=== PATIENT | male | born 1965 | race Caucasian/White ===

== ENCOUNTER 2024-09-15 20:14 | Inpatient (IN) ==
--- NOTE | 2024-09-15 20:10 | Pre Anesthesia Assessment ---
Date of Service September 15, 2024 Pre Sedation Assessment Vital Signs Pulse Pulse Resp BP BP Pulse Ox O2 Del Method 09/15/24 20:07 70 18 198/122 H 96 Room Air 09/15/24 20:07 Room Air 09/15/24 20:05 68 18 171/119 H 95 Room Air Cardiovascular + regular rate Respiratory + respiratory effort normal Pre-Sedation Airway Assessment Smoking Status: Never smoker Hx Sleep Apnea: No Hx Difficult Intubation: No Thyromental Distance: > or= 3.5 Finger Breadths Oral Cavity: + Dental Abnormalities Mallampati Class: III ASA: ASA3 Procedure Planning Contraindications for Sedation: none Current Medications Reviewed: Yes Notes The planned sedation has been discussed with the patient. Informed Consent was obtained. I have identified the patient, determined the appropriateness of sedation and have assessed the patient immediately prior to the procedure. All medicine(s) and interventions are by my order.
--- NOTE | 2024-09-15 20:13 | Cardiology Consultation ---
Date of Consultation September 15, 2024 Assessment & Plan (1) Acute NM: Presentation consistent with inferior STEMI and recommend proceeding with emergent cardiac catheterization and likely primary PCI. No apparent contraindications to procedure. Discussed risks, benefits, alternatives of procedure with patient and they are willing to proceed. Given IV heparin at outside hospital and ticagrelor 180 mg on arrival to [employer]. Further recommendations pending findings of coronary angiography. History of Present Illness History of Present Illness Mr. Knott is a 59-year-old man here with acute chest pain and ECG concerning for acute NM. He was transferred here emergently from [facility] after inferior ST elevations recognized on ECG. Patient has been having stuttering chest/back pain for 2 weeks. Pain previously lasted for 5 minutes before going away, had been taking muscle relaxers to try and help with pain. Today pain became more severe around 5 PM and persisted. Presented to [facility] around 6: 20. Treated with aspirin, heparin and nitroglycerin. Additional 50 of fentanyl in route. No prior cardiac history. Cardiac risk factors include hypertension and family history of premature CAD (mother had NM and CABG at age 48). Other medical issues include GERD, prior hernia repair. Back pain at time of arrival to [facility] 11/18. Hypertensive to 190s. EKG showed sinus rhythm with inferior ST elevations. Chest x-ray without obvious acute cardiopulmonary issue. Allergies Allergy/AdvReac Type Severity Reaction Status Date / Time bee venom protein (honey bee) Allergy Intermediate EXTRA Verified 09/15/24 20:25 SWELLING Home Medications Medication Instructions Recorded Confirmed Type Unknown Muscle Relaxant 1 dose PO DIRECTED PRN MUSCLE 09/15/24 09/15/24 History SPASMS Patient History Medical History (Updated 09/15/24 @ 21:36 by Sandra Matos PAGuerreroC) History of COVID-27 oct 2020, no hospitalized, resolved Hx of primary hypertension Surgical History (Updated 01/04/22 @ 06:18 by Juve Mayfield MD, FACS) H/O vasectomy H/O colonoscopy S/P left knee arthroscopy Family History Mother Diabetes Coronary heart disease Social History (Updated 11/02/21 @ 10:23 by Vivi Lawson, RN) Smoking Status: Never smoker Second Hand Exposure: No; Do You Dip or Chew Tobacco: No; Hx Alcohol Use: Yes Alcohol Intake Frequency: 2-3 x/Week Hx Substance Use: No Preferred Language: Yoruba Communication Ability: Effective Visual Impairment: No Limitations Hearing Ability: Normal Purler Required: No Beliefs That Will Affect Care: None marital status: Single Current Living Situation: Spouse current occupational status: employed current occupation: [email or web address] Feels Safe at Home: Yes during the past year weight has: remained stable Assistive Devices: Glasses Review of Systems Review of Systems: Not obtained the setting of emergent situation Physical Exam Physical Exam: General: Comfortable HEENT: Sclerae anicteric Lungs: Clear to auscultation anteriorly Cardiac: Regular rate and rhythm, no murmurs. Vascular: 2+ radial pulses, 2+ UNIT CLERK, 2+ DP pulses bilaterally Abdomen: Soft, nontender Extremities: Well perfused, no peripheral edema Neuro: Nonfocal Psych: Alert orient x3, normal affect and mood PG Care Time/CCT Total # of Minutes Spent Total Time Spent with Patient: Total time spent is greater than 50% in coordination of care (as documented) at patient's floor/unit and/or counseling patient: Coding Level of Care Code 26683 OFFICE CONSULT LVL Diagnoses Acute NM I21.9
[2024-09-15] MEDS: TICAGRELOR 90 MG TAB ONE (20:38)
[2024-09-15 20:39] LABS: iSTAT Creatinine 1.2 mg/dl (0.6-1.3); iSTAT Hemoglobin 14.3 g/dl (14.0-18.0); iSTAT Ionized Calcium 1.11 mmol/l (1.12-1.32); iSTAT Potassium 3.8 mmol/L (3.3-5.0)
[2024-09-15 20:39] LABS: Basophils # (auto) 0.04 K/uL (0.00-0.20); Basophils % (auto) 0.5 %; Eosinophils # (auto) 0.12 K/uL (0.00-0.50); Eosinophils % (auto) 1.5 %; Hematocrit (blood only) 42.1 % (42.0-52.0); Hemoglobin 15.8 g/dl (14.0-18.0); Immature Granulocytes # (auto) 0.02 K/uL (0.01-0.20); Immature Granulocytes % (auto) 0.2 %; Lymphocytes # (auto) 1.87 K/uL (1.20-3.40); Lymphocytes % (auto) 22.8 %; Mean Corpuscular Hemoglobin 33.3 pg (25.0-34.0); Mean Corpuscular Hgb Conc 37.5 g/dL (32.0-36.0); Mean Corpuscular Volume 88.8 fL (80.0-100.0); Mean Platelet Volume 9.1 fL (9.4-12.4); Monocytes # (auto) 0.75 K/uL (0.11-0.59); Monocytes % (auto) 9.2 %; Neutrophils # (auto) 5.39 K/uL (1.40-6.50); Neutrophils % (auto) 65.8 %; Platelet Count 249 K/uL (130-400); RDW Coefficient of Variation 12.1 % (11.5-14.5); Red Blood Count 4.74 M/uL (4.70-6.10); White Blood Count 8.19 K/ul (4.8-10.8)
--- NOTE | 2024-09-15 20:39 | Emergency Department Note ---
Impression & Plan Acute SD, Hypertension ED Provider Note NAME: ALBERTO GRANADOS AGE: 59 SEX: Male INFORMANT: Patient ED PROVIDER(S): Nestor Núñez MD CHIEF COMPLAINT: Acute SD PLAN: Disposition: Admitted emergently to the catheterization suite Outpatient prescription management: none Referral: None MEDICAL DECISION MAKING: Patient was accepted in transfer from [facility]. I did discuss the patient's case and history with his treating physician there, Dr. Lay. Did discuss the patient's situation with the [facility]. Coordinated acceptance to the Emergency Department. Initiated heart alert based upon estimated time of arrival. Did review patient's outside ECG and this was concerning for inferior SD. Catheterization team and Dr. Saenz presented to the emergency department prior to patient arrival. Did discuss patient's situation with the interventional team. Patient arrived and was evaluated by myself as well as Dr. Saenz. Internal medicine, Dr. Kim was also consulted and did evaluate the patient as well. Patient had repeat ECG here. Inferior ST elevation was noted. Patient had already received heparin and nitroglycerin along with fentanyl prehospital. He did note resolution of his chest pain. He did have some back discomfort. Chest x-ray did not reveal any evidence of wide mediastinum. No further medication intervention was recommended by cardiology. Patient was taken emergently to the catheterization suite for cardiac intervention. I refer you to the EMR for further details. Care/management discussed with: Transfer physician at [facility], Dr. Lay, radio communication coordinator at [facility], interventional cardiology, customer development manager, hospitalist Level of care consideration(s): After review of the information above and other included data, I feel the patient requires escalation of care to admission Triage Nursing notes: reviewed and agree them. Vital Signs: reviewed and remarkable for hypertension Additional History obtained from: none Chronic Medical/Social Conditions affecting care: Hypertension Prior/ Outside/ External records reviewed: none Differential Diagnosis: Cardiac ischemia, aortic dissection, pulmonary embolism, pneumothorax, pneumonia, pericarditis, myocarditis, esophageal rupture, GERD, cholecystitis, pancreatitis, musculoskeletal, as well as other pathologies. Diagnostics, independently interpreted by me: ECG: Twelve-lead ECG reveals a sinus bradycardia rhythm with inferior ST elevation at 53 beats per minute. Cardiac Monitoring: Cardiac monitoring ordered by me: The patient was placed on continuous cardiac monitoring and observed. It revealed a normal sinus rhythm at 72 beats per minute without ectopy or evidence of dysrhythmia. Medical decision rules: none Imaging studies: Chest x-ray. Findings: A chest x-ray was performed and revealed no pneumothorax, effusion, infiltrate, pulmonary edema, free air under the diaphragm, or wide mediastinum. Impression: No acute disease. HPI: 59 year old Male arrives for evaluation of acute SD. Patient notes having on and off chest pain and back pain for the last 2 weeks. He states that usually was going away within about 5 minutes. Today around 1700 hrs. the pain came and did not go away. He went to the [facility] and ECG there was concerning for acute SD. Patient was treated with aspirin, nitroglycerin and heparin. He also received fentanyl. Patient was seen by Dr. Lay there. He discussed findings with the patient and family and patient requested transfer to [facility]. Dr. Lay did contact me and we discussed the case. Patient was accepted to the emergency department for management of acute ST elevation SD. Patient was made a heart alert prehospital. On arrival patient notes chest pain has resolved. He does have some discomfort in his back. Pain was rated as 6 out of 10. Pt denies LOC, headache, fevers, chills, neck pain, breathing difficulties, nausea, vomiting, abdominal pain, numbness, weakness, lymphadenopathy, rash, or other complaints. PAST MEDICAL HISTORY: See Below, hypertension PAST SURGICAL HISTORY: See Below, hernia repair SOCIAL HISTORY: See Below, HOME MEDICATIONS: See Below ALLERGIES: See Below VITALS: See Below PHYSICAL EXAMINATION: GENERAL: Awake, alert, well-appearing, in no distress HENT: Normocephalic, atraumatic. Oropharynx unremarkable. EYES: Normal conjunctiva. Sclera non-icteric. NECK: Inspection normal. Non-tender. Supple. No nuchal rigidity. FROM. No masses. RESPIRATORY: Clear to auscultation. No wheezes. No rales. Normal respiratory effort. CARDIAC: Bradycardic rate. Normal rhythm. No murmurs. No rubs. Extremities warm and well perfused. Pulses equal. No JVD. GI: Soft, non-distended. No tenderness to palpation. No rebound or guarding. No masses. RECTAL: Deferred. MUSCULOSKELETAL: Atraumatic. Chest examination reveals no tenderness. No joint edema. LOWER EXTREMITIES: Calves are equal size bilaterally and non-tender. No edema. No discoloration. NEURO: Normal sensorium. No sensory or motor deficits noted. SKIN: No rash or jaundice noted. PROCEDURES: none CRITICAL CARE: I have personally spent 30 minutes of critical care time in the direct management of this patient. This includes bedside care, interpretation of diagnostic studies, and testing, discussion with consultants, patient, and coordination of transfer, documentation, and other required patient management activities. These minutes are in excess of all separately billable procedures. OBSERVATION NOTE: none Past Med/Surg History Problem List (Updated 09/15/24 @ 21:36 by Sandra Matos PA-C) CAD (coronary artery disease) ST elevation myocardial infarction (STEMI) of inferior wall Acute SD S/P left inguinal hernia repair (11/22/21) Left Inguinal Hernia Open Repair(Left) - Juve Mayfield MD, FACS Encounter for pre-operative examination Epigastric abdominal pain Substernal chest pain GERD (gastroesophageal reflux disease) Hypertension Left inguinal hernia Medical History (Updated 09/15/24 @ 21:36 by Sandra Matos PA-C) History of COVID-27 oct 2020, no hospitalized, resolved Hx of primary hypertension Surgical History (Updated 01/04/22 @ 06:18 by Juve Mayfield MD, FACS) H/O vasectomy H/O colonoscopy S/P left knee arthroscopy Family History Mother Diabetes Coronary heart disease Social History (Updated 11/02/21 @ 10:23 by Vivi Lawson RN) Smoking Status: Never smoker Second Hand Exposure: No; Do You Dip or Chew Tobacco: No; Hx Alcohol Use: Yes Alcohol type: hard liquor Alcohol Intake Frequency: 2-3 x/Week Hx Substance Use: No Preferred Language: Slovak Communication Ability: Effective Visual Impairment: No Limitations Hearing Ability: Normal Examining Officer Required: No Beliefs That Will Affect Care: None marital status: Single Current Living Situation: Spouse current occupational status: employed current occupation: [employer] Feels Safe at Home: Yes Safety Concerns: Feels Safe At This Time during the past year weight has: remained stable Assistive Devices: Glasses Allergies Allergies Allergy/AdvReac Type Severity Reaction Status Date / Time bee venom protein (honey bee) Allergy Intermediate EXTRA Verified 09/15/24 20:25 SWELLING Home Meds Home Medications Medication Instructions Recorded Confirmed Unknown Muscle Relaxant 1 dose PO DIRECTED PRN MUSCLE 09/15/24 09/15/24 SPASMS Results & Data (ED) Vital Signs Vital Signs - 24 hr 09/15/24 20:05 09/15/24 20:07 09/15/24 20:07 Pulse Rate 68 Pulse Rate [Apical] 70 Respiratory Rate 18 18 Respiratory Effort / Characteristics Non-Labored Non-Labored Respiratory Depth Normal Normal Blood Pressure 171/119 H Blood Pressure [Right Arm] 198/122 H Blood Pressure Mean 136 Blood Pressure Mean [Right Arm] 147 Pulse Oximetry 95 96 Oxygen Delivery Method Room Air Room Air Room Air Sepsis Recent Fever Within 48 Hours No Sepsis New/Unexplained Change in Mental Status No Sepsis Action Taken by Nursing No Action Required Laboratory Data 09/15/24 20:09/15/24 20:25 Lab Results 09/15/24 Range/Units 20:25 WBC 8.19 (4.8-10.8) K/ul RBC 4.74 (4.70-6.10) M/uL Hgb 15.8 (14.0-18.0) g/dl Hct 42.1 (42.0-52.0) % MCV 88.8 (80.0-100.0) fL MCH 33.3 (25.0-34.0) pg MCHC 37.5 H (32.0-36.0) g/dL RDW Std Deviation 39.0 (36.4-46.3) fL RDW Coeff of Nicanor 12.1 (11.5-14.5) % Plt Count 249 (130-400) K/uL MPV 9.1 L (9.4-12.4) fL Immature Gran % (Auto) 0.2 % Neut % (Auto) 65.8 % Lymph % (Auto) 22.8 % Ware % (Auto) 9.2 % Eos % (Auto) 1.5 % Baso % (Auto) 0.5 % Neut # (Auto) 5.39 (1.40-6.50) K/uL Lymph # (Auto) 1.87 (1.20-3.40) K/uL Ware # (Auto) 0.75 H (0.11-0.59) K/uL Eos # (Auto) 0.12 (0.00-0.50) K/uL Baso # (Auto) 0.04 (0.00-0.20) K/uL Immature Gran # (Auto) 0.02 (0.01-0.20) K/uL PT 11.0 (9.0-12.0) Seconds INR 1.0 (0.9-1.1) APTT 43 H (21-31) Seconds PTT Ratio 1.6 Sodium 137 (136-145) mmol/L Potassium 3.8 (3.5-5.1) mmol/L Chloride 105 (98-107) mmol/L Carbon Dioxide 25 (21-32) mmol/L Anion Gap 7 (3-11) BUN 18 (6-23) mg/dl Creatinine 1.12 (0.6-1.4) mg/dl Est Cr Clr Drug Dosing 91.1 ml/min eGFR 76.15 BUN/Creatinine Ratio 16.1 (10-20) Glucose 93 (70-99(Fasting)) mg/dl Calcium 9.1 (8.6-10.3) mg/dl Magnesium 1.9 (1.7-2.4) mg/dl Total Bilirubin 1.8 H (0.2-1.0) mg/dl AST 32 (13-39) U/L ALT 37 (7-52) U/L Alkaline Phosphatase 63 (34-104) U/L Troponin I High Sens 241.6 H* (0-20) pg/ml Total Protein 7.0 (6.0-8.3) gm/dl Albumin 4.5 (3.4-5.0) gm/dl Globulin 2.5 (2.5-4.0) gm/dl Albumin/Globulin Ratio 1.8 (0.9-2) Lipase 110 H (11-82) U/L Administered Medications Metoprolol Tartrate (Metoprolol Tartrate 25 Mg Tab) 12.5 mg PO BID CARTER Stop: 10/15/24 21:59 Last Admin: 09/15/24 22:25 Dose: 12.5 mg Documented By: FAN Miscellaneous (Icu Protocol For Hyperglycemia) 1 each N/A ACHS CARTER Stop: 09/17/24 21:53 Last Admin: 09/15/24 22:25 Dose: Not Given Documented By: FAN Discontinued Medications Atropine Sulfate (Atropine Sulfate 0.1 Mg/Ml 10ml Syr) Confirm Administered Dose 1 mg IV .STK-MED ONE Stop: 09/15/24 20:25 Last Admin: 09/15/24 21:27 Dose: 1 mg Documented By: AAF Atropine Sulfate (Atropine Sulfate 0.1 Mg/Ml 10ml Syr) Confirm Administered Dose 1 mg IV .STK-MED ONE Stop: 09/15/24 20:51 Last Admin: 09/15/24 21:28 Dose: Not Given Documented By: AAF Epinephrine HCl (Epinephrine 1.5" Ndl 0.1 Mg/Ml Syr) Confirm Administered Dose 1 mg IV .STK-MED ONE Stop: 09/15/24 20:25 Last Admin: 09/15/24 21:27 Dose: Not Given Documented By: AAF Fentanyl Citrate (Fentanyl Citrate Pf 100 Mcg/2 Ml Vial) Confirm Administered Dose 100 mcg .ROUTE .STK-MED ONE Stop: 09/15/24 20:15 Last Increment: 09/15/24 21:19 Dose: 75 mcg Documented By: AAF Heparin Sodium (Porcine) (Heparin (Porcine) 1000 Unit/Ml 10 Ml (Computer Technical Support Specialist Use Only)) Confirm Administered Dose 10,000 units .ROUTE .STK-MED ONE Stop: 09/15/24 20:15 Last Admin: 09/15/24 21:24 Dose: 8,000 units Documented By: AAF Heparin Sodium/Sodium Chloride (Heparin In Nss Infusion 1000 Unit/500 Ml (2 U/Ml) Bag) Confirm Administered Dose 3,000 units IV .STK-MED ONE Stop: 09/15/24 20:15 Last Admin: 09/15/24 21:25 Dose: 3,000 units Documented By: AAF Ioversol (Optiray 350) Confirm Administered Dose 1 ml .ROUTE .STK-MED ONE Stop: 09/15/24 20:15 Last Admin: 09/15/24 21:26 Dose: 75 ml Documented By: AAF Midazolam HCl (Midazolam Hcl 1 Mg/Ml 2ml Vial) Confirm Administered Dose 2 mg .ROUTE .STK-MED ONE Stop: 09/15/24 20:15 Last Admin: 09/15/24 21:26 Dose: 2 mg Documented By: AAF Nitroglycerin/Dextrose (Nitroglycerin/D5w 100mcg/Ml 20ml Syr) Confirm Administered Dose 2,000 mcg .ROUTE .STK-MED ONE Stop: 09/15/24 20:15 Last Admin: 09/15/24 21:27 Dose: 2,000 mcg Documented By: BE Ondansetron HCl (Ondansetron Inj 2 Mg/Ml 2 Ml Vial) Confirm Administered Dose 4 mg .ROUTE .STK-MED ONE Stop: 09/15/24 20:25 Last Admin: 09/15/24 21:27 Dose: 4 mg Documented By: DEYSI Ticagrelor (Ticagrelor 90 Mg Tab) Confirm Administered Dose 180 mg .ROUTE .STK- MED ONE Stop: 09/15/24 20:29 Last Admin: 09/15/24 20:38 Dose: 180 mg Documented By: DEYSI Imaging Data Radiologist's Impression: Chest X-Ray 09/15/24 20:25 Exam(s): XR CXR 1 VIEW EXAM: XR Chest, 1 View CLINICAL HISTORY: Reason for exam: Chest pain, nonspecific. TECHNIQUE: Frontal view of the chest. COMPARISON: No relevant prior studies available. FINDINGS: Lungs: No consolidation. No overt edema. Pleural space: No pleural effusion. No pneumothorax. Heart: Unremarkable. No cardiomegaly. IMPRESSION: No acute cardiopulmonary abnormality. Electronically signed by: Mt Madsen MD 09/15/24 22:01 PM Discharge Plan Visit Data Chief Complaint: Heart Alert Stated Complaint: HEART ALERT ED Provider: Nestor Núñez Discharge Problem: Acute SD, Hypertension Patient Disposition: Admitted As Inpatient Discharge Instructions Interventions: ED Discharge Assessment Last Done: 09/15/24 20:27
--- NOTE | 2024-09-15 20:53 | History & Physical Report ---
Date of Service September 15, 2024 Assessment & Plan (1) ST elevation myocardial infarction (STEMI) of inferior wall: (2) Hx of primary hypertension: (3) GERD (gastroesophageal reflux disease): Plan 59 year old male presents as a transfer from [facility] with chest pain and inferior STEMI #Inferior STEMI s/p PCI with x1 DELILAH to 100% occluded RCA ASA, Brilinta, metoprolol, losartan, statin Lipid panel and HbA1C with AM labs TTE Consult cardiology - discussed with Dr Saenz pre and post cardiac cath Admit to ICU and consult operations officer afloat - discussed with ICU CHAMP Flores Note previously had GERD secondary to losartan therefore may need pantoprazole longer term not just as inpatient #History of HTN Previously intolerant to lisinopril due to cough, GERD with losartan Monitor for recurrence of symptoms on losartan VTE Prophylaxis - deferred with DAPT Diet - heart healthy Disposition - admit to ICU Admission and Anticipated Discharge Date Admission Date: September 15, 2024 History of Present Illness Chief Complaint: Chest pain Primary Care Provider: Chapo Emerita Knott is a 59 year old male who presents to [facility] emergency room with chest pain. Intermittent for the last 2 weeks resolving over 5 minutes. Constant severe pain since 5pm today. Seen at [facility] and EKG concerning for inferior STEMI therefore emergently transferred to [facility] for percutaneous intervention and he arrived as a heart alert. Patient was seen both pre and post cardiac catheterization. He is currently chest pain free following cardiac catheterization in the ICU. Allergies Allergy/AdvReac Type Severity Reaction Status Date / Time bee venom protein (honey bee) Allergy Intermediate EXTRA Verified 09/15/24 20:25 SWELLING Home Medications Medication Instructions Recorded Confirmed Type Unknown Muscle Relaxant 1 dose PO DIRECTED PRN MUSCLE 09/15/24 09/15/24 History SPASMS Past Med/Surg History Problem List (Updated 09/16/24 @ 07:02 by Jorge Kim MD) CAD (coronary artery disease) ST elevation myocardial infarction (STEMI) of inferior wall Acute [place] S/P left inguinal hernia repair (11/22/21) Left Inguinal Hernia Open Repair(Left) - Juve Mayfield MD, FACS Epigastric abdominal pain Substernal chest pain GERD (gastroesophageal reflux disease) Hypertension Left inguinal hernia Medical History (Updated 09/16/24 @ 07:02 by Jorge Kim MD) History of COVID-27 oct 2020, no hospitalized, resolved Hx of primary hypertension Surgical History (Updated 01/04/22 @ 06:18 by Juve Mayfield MD, FACS) H/O vasectomy H/O colonoscopy S/P left knee arthroscopy Family History Mother Diabetes Coronary heart disease Social History (Updated 11/02/21 @ 10:23 by Vivi Lawson, RN) Smoking Status: Never smoker Second Hand Exposure: No; Do You Dip or Chew Tobacco: No; Hx Alcohol Use: Yes Alcohol type: hard liquor Alcohol Intake Frequency: 2-3 x/Week Hx Substance Use: No Preferred Language: Citizen Of [place] Communication Ability: Effective Visual Impairment: No Limitations Hearing Ability: Normal Order Entry Specialist Required: No Beliefs That Will Affect Care: None marital status: Single Current Living Situation: Spouse current occupational status: employed current occupation: [employer] Feels Safe at Home: Yes Safety Concerns: Feels Safe At This Time during the past year weight has: remained stable Assistive Devices: Glasses Review of Systems Review of Systems: All systems reviewed & are unremarkable except as noted in HPI & below Physical Exam Constitutional: WD/WN, vitals as above ENMT: external ear and nose normal, oropharynx normal Respiratory: normal respiratory effort, lungs clear to auscultation Cardiovascular: RRR, no murmur, no edema Gastrointestinal (Abdomen): normal bowel sounds, soft, nontender, no hepatosplenomegaly Psychiatric: A+Ox3, euthymic affect Results & Data Results & Data Vital Signs (Past 12 Hours) Vital Signs Pulse Pulse Resp BP BP Pulse Ox O2 Del Method 09/15/24 20:27 Room Air 09/15/24 20:07 70 18 198/122 H 96 Room Air 09/15/24 20:07 Room Air 09/15/24 20:05 68 18 171/119 H 95 Room Air Laboratory Results All admission labs reviewed, Magnesium added Diagnostic Findings Exam(s): XR CXR 1 VIEW EXAM: XR Chest, 1 View CLINICAL HISTORY: Reason for exam: Chest pain, nonspecific. TECHNIQUE: Frontal view of the chest. COMPARISON: No relevant prior studies available. FINDINGS: Lungs: No consolidation. No overt edema. Pleural space: No pleural effusion. No pneumothorax. Heart: Unremarkable. No cardiomegaly. IMPRESSION: No acute cardiopulmonary abnormality. ECG Rate (beats per minute): 53 Rhythm: sinus bradycardia Findings: + ST elevation (Inferior) Comparison ECG Date: from (November 17, 2021) Change: the following changes noted (ST elevation in inferior leads now present) Code Status & VTE Plan Code Status Full VTE Prophylaxis Plan VTE Prophylaxis will be ordered: No PG Care Time/CCT Total # of Minutes Spent Total Time Spent with Patient: Total time spent is greater than 50% in coordination of care (as documented) at patient's floor/unit and/or counseling patient: Coding Level of Care Code 23224 INT INP/OBS CARE 3/75MIN Diagnoses ST elevation myocardial infarction (STEMI) of inferior wall I21.19 Hx of primary hypertension Z86.79 GERD (gastroesophageal reflux disease) K21.9
[2024-09-15 20:55] LABS: Albumin Globulin Ratio 1.8 (0.9-2); Albumin Level 4.5 gm/dl (3.4-5.0); BUN Creatinine Ratio 16.1 (10-20); Bilirubin,Total 1.8 mg/dl (0.2-1.0); Calcium 9.1 mg/dl (8.6-10.3); Creatinine Clr Calc Pharmacy 91.1 ml/min; Globulin 2.5 gm/dl (2.5-4.0); Potassium 3.8 mmol/L (3.5-5.1)
[2024-09-15 21:04] LABS: Partial Thromboplastin Ratio 1.6; Partial Thromboplastin Time 43 Seconds (21-31)
[2024-09-15 21:07] LABS: Troponin I High Sensitivity 241.6 pg/ml (0-20)
[2024-09-15] MEDS: fentaNYL citrate PF 100 MCG/2 ML VIAL ONE (21:19)
--- NOTE | 2024-09-15 21:22 | Critical Care Consultation ---
Date of Consultation September 15, 2024 Assessment & Plan (1) ST elevation myocardial infarction (STEMI) of inferior wall: (2) CAD (coronary artery disease): (3) Hypertension: Plan Reason Critically Ill: 1. Inferior wall STEMI s/p DELILAH to RCA Neuro - Multimodal pain management APAP PRN pain/fever Cardiac - DAPT as ordered Lipids, A1c pending TTE Post-cath EKG pending Cardiology consultation MAP goal > 65mmHg Start BB, ARB as hemodynamics allow Respiratory - SpO2 goal > 92% HOB 30 IS/Flutter GI - Diet: Heart health, advance DIANNE SUP: PPI Bowel regimen: PRN, up and moving as soon as able RENAL/LYTES - Renal function stable Replete electrolytes as indicated No indication for dupont Maintain net even to net negative. Encourage PO intake ENDO - A1c pending BG 140-180 per SCCM guidelines ISS if needed while inpatient HEME - DAPT ID - No acute concerns LINES/TUBES/DRAINS - PIV x2 DISPOSITION - ICU x24 hours per protocol I have personally spent 30 minutes of critical care time in the direct management of this patient. This is a life/limb threatening event. This includes time spent evaluating patient, direct bedside care, chart review, placing orders, interpretation of diagnostic studies, discussion with consultants, patient, and family members, as well as other required patient management activities. This time is exclusive of all separately billable procedures, and teaching time and separate from and in addition to any other critical care service time. Thank you for allowing us to participate in the care of this patient. Please refer to my attending physician's documentation for any further recommendations. Supervising Physician Co-Signing Physician Notes Patient seen and examined. EMR reviewed. Agree with assessment plan as noted by JENNIFER. Please refer to my progress note from for additional details History of Present Illness Reason for Consultation: STEMI Requesting Physician: Dany Attending Physician: Judy History of Present Illness Mr. Vishal Knott is a 59YOM with a history of hypertension and GERD as well as a strong family history of heart disease who presented to [facility] ED as a transfer from [facility] due to inferior STEMI. Patient hypertensive, otherwise hemodynamically stable on arrival to [facility]. Per report, patient experiencing transient chest pain with radiation to his jaw and back x2 weeks, worsening on 09/15/2024. He received aspirin load, nitroglycerin SL x2, heparin load, and heparin infusion at OSH. Transferred to [facility] for cardiac catheterization. Initial troponin 288. Bilirubin 1.8, lipase 110, labs otherwise unremarkable. He underwent successful DELILAH to 100% blockage of RCA. Remainder of disease is mild to moderate. LVEDP was WNL. Patient seen on arrival to ICU 110. He is AAOx3. Remains hypertensive 168 systolic. No current complaints, some muscle pain of the chest /10. No shortness of breath, headache, visual deficits. Remainder of ROS negative. Does admit to medical noncompliance with his Losartan. Allergies Allergy/AdvReac Type Severity Reaction Status Date / Time bee venom protein (honey bee) Allergy Intermediate EXTRA Verified 09/15/24 20:25 SWELLING Home Medications Medication Instructions Recorded Confirmed Type Unknown Muscle Relaxant 1 dose PO DIRECTED PRN MUSCLE 09/15/24 09/15/24 History SPASMS Patient History Medical History (Updated 09/16/24 @ 07:02 by Jorge Kim MD) History of COVID-27 oct 2020, no hospitalized, resolved Hx of primary hypertension Surgical History (Updated 01/04/22 @ 06:18 by Juve Mayfield MD, FACS) H/O vasectomy H/O colonoscopy S/P left knee arthroscopy Family History Mother Diabetes Coronary heart disease Social History (Updated 11/02/21 @ 10:23 by Vivi Lawson RN) Smoking Status: Never smoker Second Hand Exposure: No; Do You Dip or Chew Tobacco: No; Hx Alcohol Use: Yes Alcohol type: hard liquor Alcohol Intake Frequency: 2-3 x/Week Hx Substance Use: No Preferred Language: Afghan Communication Ability: Effective Visual Impairment: No Limitations Hearing Ability: Normal 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 Beliefs That Will Affect Care: None marital status: Single Current Living Situation: Spouse current occupational status: employed current occupation: [employer] Feels Safe at Home: Yes Safety Concerns: Feels Safe At This Time during the past year weight has: remained stable Assistive Devices: Glasses Review of Systems Review of Systems: All systems reviewed & are unremarkable except as noted in Subjective Physical Exam Constitutional: WD/WN, vitals as above Eyes: PERRL, conjunctivae normal, anicteric sclerae ENMT: external ear and nose normal, oropharynx normal Neck: trachea midline, no thyromegaly Respiratory: normal respiratory effort, lungs clear to auscultation Cardiovascular: RRR, no murmur, no edema Gastrointestinal (Abdomen): normal bowel sounds, soft, nontender, no hepatosplenomegaly Musculoskeletal: no cyanosis or clubbing, extremities motor strength 5/5 Skin: no rashes, warm and dry Neurologic: PERRL, EOMI, accommodation nl, no face palsy, no dysarthria Genitourinary: Deferred Results & Data Results & Data Vital Signs (Past 12 Hours) Vital Signs Pulse Pulse Resp BP BP Pulse Ox O2 Del Method 09/15/24 20:27 Room Air 09/15/24 20:07 70 18 198/122 H 96 Room Air 09/15/24 20:07 Room Air 09/15/24 20:05 68 18 171/119 H 95 Room Air Laboratory Results Reviewed Diagnostic Findings Reviewed Medications Administered See MAR Coding Level of Care Code 95830 CRITICAL CARE 1ST 30-74M Diagnoses ST elevation myocardial infarction (STEMI) of inferior wall I21.19 CAD (coronary artery disease) I25.10 Hypertension I10 Time Spent (min) 30
[2024-09-15] MEDS: HEPARIN (PORCINE) 1000 UNIT/ML 10 ML (CATH LAB USE ONLY) ONE (21:24)
--- NOTE | 2024-09-15 21:24 | Post Anesthesia Assessment ---
Date of Service September 15, 2024 Post Sedation Assessment Vital Signs Pulse Pulse Resp BP BP Pulse Ox O2 Del Method 09/15/24 20:27 Room Air 09/15/24 20:07 70 18 198/122 H 96 Room Air 09/15/24 20:07 Room Air 09/15/24 20:05 68 18 171/119 H 95 Room Air Recovery Score Activity: Moves 4 extremities Respiration: Deep Breath/Cough Circulation: +/-20% PreAnes Value Consciousness: Fully Awake Oxygen Saturation: O2 needed for >90% Discharge Sedation Level of Care: Fast Track Phase II Post Sedation Plan On clinical assessment, the patient appears to have tolerated the sedation without complications. Patient is recovering as anticipated. Patient will continue to be monitored by nursing and may be discharged when sedation discharge criteria are met per below protocol. Upon Completions of procedure up to 15 minutes continue every 5 minute vital signs and the P.A.R. score; then discharge to a Phase I or Fast Track to Phase II per the following guidelines: * Discharge Patient to appropriate Phase II area if PAR is 8 or greater or return to pre- procedure baseline. The post - procedure orders will be as directed. * If PAR score is less than 8 or not return to pre-procedure baseline then patient will follow Phase I monitoring till PAR is reached for Phase II. The Phase I may be done in procedure room or may call to secure a Phase I area. * If naloxone or flumazenil are used for reversal, hold in Phase I for continued monitoring from when last reversal dose was given for a minimum of 60 minutes or longer pending the nurse and/or physician discretion of patient condition before discharge to Phase II. Please call the Sedation Physician to re-evaluate and complete post-note for discharge to Phase II area. Do NOT discharge from procedure sedation or Phase 1 until post- sedation evaluation note is complete by procedure /sedation MD Sedation Discharge Instructions to be given to the patient at discharge to home.
[2024-09-15] MEDS: OPTIRAY 350 ONE (21:26)
[2024-09-15] MEDS: MIDAZOLAM HCL 1 MG/ML 2ML VIAL ONE (21:26)
[2024-09-15] MEDS: ATROPINE SULFATE 0.1 MG/ML 10ML SYR IV ONE ×2 (21:27→21:28)
[2024-09-15] MEDS ORDERED: ONDANSETRON INJ 2 MG/ML 2 ML VIAL IV PRN (21:27)
[2024-09-15] MEDS: NITROGLYCERIN/D5W 100MCG/ML 20ML SYR ONE (21:27)
[2024-09-15] MEDS: ONDANSETRON INJ 2 MG/ML 2 ML VIAL ONE (21:27)
--- NOTE | 2024-09-15 21:27 | Cardiac Catheterization ---
[facility] Data: Vending Route Servicer Cardiac Status Clinical evaluation leading to the procedure CAD Presenation: STEMI Anginal Classification: CCS IV Diagnostic Physicians Name: Melvin Saenz MD Closure Device Recommendations: PCI without planned CABG Cardiac Cath Procedure Full Procedure Date September 15, 2024 Pre-Procedure Diagnosis Pre-Procedure Diagnosis: STEMI AUC Score AUC Score: 9 Post-Procedure Diagnosis Post-Procedure Diagnosis: Severe CAD, Successful PCI and Normal Intracardiac Pressures Procedure(s) Performed Procedure(s) Performed: Coronary Angiography, Left Heart Cath and Drug Eluting Stent Recruiting Internship Melvin Saenz MD Salesperson Stereo Equipment(s) Nellie Smith Estimated Blood Loss Estimated Blood Loss: 20 Medication(s) Medication(s): Clopidogrel, Fentanyl, Heparin, Lidocaine 1%, Nicardipine, Nitroglycerin and Versed Summary of Findings Indication: STEMI/Heart Alert Access: 6 Fr slender right radial artery Catheters: [place], JR4 guide, pigtail Findings: LM -Short, no significant disease LAD -large caliber, calcified, 30-40% proximal disease, 30-40% distal disease before wraps around apex. Gives off 4 diagonals. 50% ostial D2 Circumflex -medium caliber, 20 to 30% ostial, remainder of AV groove circumflex without significant disease. Medium OM1 with 20 to 30% proximal disease. RCA -dominant, 100% earlymid RCA occlusion. Distal vessel partially fills retrograde via [id number] collaterals. LVEDP -7 -- PCI -- Antithrombotic therapy: Heparin, ticagrelor Procedure: RCA cannulated with JR4 guide Onyx Chip Terrazzo Worker 50 wire passed across lesion into distal vessel Proximal to mid lesion predilated with 2.5 compliant balloon Dilated lesion stented with 3.0 x 30 mm Nahum drug-eluting stent Stent post-dilated with 3.5 noncompliant balloon IC vasodilators administered for spasm Post procedure YOUNG 3 flow, stent well expanded with minimal residual stenosis and no apparent cardiac complications. Arterial Closure: TR band Summary: 1. Inferior STEMI/100% earlymid RCA occlusion with partial [id number] collaterals 2. Mild non-culprit coronary artery disease -30-40% proximal and distal LAD 20-30% ostial circumflex, 20 to 30% proximal OM1 3. Normal intracardiac filling pressure 4. Successful PCI of proximal to mid RCA with single drug-eluting stent (3.0 x 30 mm Nahum; postdilated with 3.5 NC). Recommendations: Admit to ICU for continued monitoring Loaded with ticagrelor 180 mg and Continue dual-antiplatelet therapy for at least 1 year. Trend troponins until peak, Check Echo Uptitrate beta-tessa/ARB as BP allows High-dose statin Consult cardiac Rehab Hemodynamics Rest Ao:: 149/80/119 Final Ao: 120/78/96 LV: 117/7 Recommendations Recommendations: PCI without planned CABG Radiation Exposure (mGy) 2014 Contrast (mls) 75 Anesthesia Moderate 6182-0934 Procedural Complication(s) None Disposition ICU I attest to the content of the Intraoperative Record and any orders documented therein. Any exceptions are noted below. [facility] Card Cath Procedure Codes Cardiac Catheterization Procedure 1: Cardiovascular Cath Procedures: 67824 Coronaries and LHC (+/-LV) Moderate Sedation Procedure 1: Sedation/Anesthesia: 16559 Mod Sedation by the same physician;Init15 Min Child Age 5 & Up Procedure 2: Sedation/Anesthesia: 17959 Mod Sedation by the same physician; Ea [id number] Minutes Stenting Procedure 1: Cardiovascular Stent Procedures: 05514 Perc transluminal revascularization of acute sub/total occl, aMI PG Care Time/CCT Total # of Minutes Spent Total Time Spent with Patient: Total time spent is greater than 50% in coordination of care (as documented) at patient's floor/unit and/or counseling patient:
--- NOTE | 2024-09-15 22:02 | XRay Report ---
Exam(s): XR CXR 1 VIEW EXAM: XR Chest, 1 View CLINICAL HISTORY: Reason for exam: Chest pain, nonspecific. TECHNIQUE: Frontal view of the chest. COMPARISON: No relevant prior studies available. FINDINGS: Lungs: No consolidation. No overt edema. Pleural space: No pleural effusion. No pneumothorax. Heart: Unremarkable. No cardiomegaly. IMPRESSION: No acute cardiopulmonary abnormality. Electronically signed by: Mt Madsen MD 09/15/24 22:01 PM
[2024-09-15 22:25] LABS: Magnesium 1.9 mg/dl (1.7-2.4)
[2024-09-15] MEDS: ICU Protocol for HYPERglycemia SCH (22:25)
[2024-09-15] MEDS: METOPROLOL TARTRATE 25 MG TAB PO SCH (22:25)
[2024-09-16 05:43] LABS: Anion Gap 5 (3-11); BUN Creatinine Ratio 16.8 (10-20); Blood Urea Nitrogen 19 mg/dl (6-23); Calcium 8.5 mg/dl (8.6-10.3); Carbon Dioxide 26 mmol/L (21-32); Chloride 105 mmol/L (98-107); Cholesterol 214 mg/dl (0-200); Creatinine Clr Calc Pharmacy 81.6 ml/min; Glucose 115 mg/dl (70-99(Fasting)); HDL Cholesterol 35 mg/dl; Phosphorus 4.1 mg/dl (2.5-4.9); Potassium 3.9 mmol/L (3.5-5.1); Sodium 136 mmol/L (136-145); Triglycerides 428 mg/dl (0-150)
[2024-09-16 05:49] LABS: Chol HDL Ratio 6.1 (0-5)
[2024-09-16] MEDS: ICU ELECTROLYTE REPLACEMENT PROTOCOL SCH (06:16)
[2024-09-16] MEDS: MAGNESIUM OXIDE 400 MG TAB PO SCH (06:17)
[2024-09-16] MEDS: POTASSIUM CHLORIDE CRTAB 20 MEQ TABCR PO SCH (06:17)
[2024-09-16 07:12] LABS: Estimated Average Glucose 100 mg/dl; Hemoglobin A1C 5.1 % (4.5-5.6)
[2024-09-16] MEDS ORDERED: ICU Protocol for HYPERglycemia SCH (07:30)
[2024-09-16 07:43] LABS: Hematocrit (blood only) 39.3 % (42.0-52.0); Hemoglobin 13.5 g/dl (14.0-18.0); Mean Corpuscular Hemoglobin 33.8 pg (25.0-34.0); Mean Corpuscular Hgb Conc 37.5 g/dL (32.0-36.0); Mean Corpuscular Volume 89.9 fL (80.0-100.0); Mean Platelet Volume 9.3 fL (9.4-12.4); Platelet Count 249 K/uL (130-400); RDW Coefficient of Variation 12.3 % (11.5-14.5); Red Blood Count 4.37 M/uL (4.70-6.10); White Blood Count 6.67 K/ul (4.8-10.8)
--- NOTE | 2024-09-16 07:43 | Critical Care Progress Note ---
Date of Service September 16, 2024 Assessment & Plan (1) ST elevation myocardial infarction (STEMI) of inferior wall: (2) CAD (coronary artery disease): (3) Hypertension: Plan Impression: 59-year-old male with acute. ID status postcardiac catheterization with drug-eluting stent placement to a 100% RCA occlusion. Patient is doing well clinically Recommendations: 1. Acute ID: Echo pending. Hemodynamically stable. Continue to trend troponins until peaks. Continue dual antiplatelet agents. Will need outpatient cardiac rehab. 2. Hypertriglyceridemia with hyperlipidemia: On high-dose statin currently. Will need outpatient follow-up and may consider additional therapy for lowering triglycerides depending on clinical response. 3. Hypertension: Currently on metoprolol 12.5 and Cozaar. On increasing metoprolol given heart rates in the 50s. Patient is doing well clinically. His critical care issues resolved. He can downgrade out of the ICU. Ultimate disposition per cardiology and primary admitting service. Critical care will sign off Admission and Anticipated Discharge Date Admission Date: September 15, 2024 Subjective Patient seen and examined. EMR reviewed. Discussed with critical care nurse at bedside. The patient is up to the chair. He feels well. He tolerated diet. He is chest pain-free. No shortness of breath. No nausea or vomiting. Echocardiogram is pending. His catheterization site is clean dry and intact. He is neurovascularly intact. He has no concerns this morning Review of Systems Review of Systems: All systems reviewed & are unremarkable except as noted in Subjective Physical Exam Constitutional: WD/WN, vitals as above Neck: trachea midline, no thyromegaly Respiratory: normal respiratory effort, lungs clear to auscultation Cardiovascular: RRR, no murmur, no edema Gastrointestinal (Abdomen): normal bowel sounds, soft, nontender, no hepatosplenomegaly Musculoskeletal: Extremities: extremities normal to inspection Skin: no rashes, warm and dry Neurologic: Nonfocal exam Lymphatic: no cervical lymphadenopathy Results & Data Results & Data Vital Signs (Past 12 Hours) Vital Signs Temp Pulse Pulse Resp BP BP Pulse Ox 09/16/24 06:48 45 L 18 93 09/16/24 06:30 43 L 14 96 09/16/24 06:21 45 L 16 95 09/16/24 06:12 58 L 16 95 09/16/24 06:06 60 13 97 09/16/24 06:00 127/79 09/16/24 06:00 127/79 09/16/24 06:00 127/79 09/16/24 06:00 127/79 09/16/24 06:00 127/79 09/16/24 06:00 127/79 09/16/24 06:00 127/79 09/16/24 06:00 127/79 09/16/24 06:00 127/79 09/16/24 06:00 127/79 09/16/24 06:00 127/79 09/16/24 06:00 127/79 09/16/24 06:00 127/79 09/16/24 05:57 59 L 16 93 09/16/24 05:42 46 L 12 95 09/16/24 05:33 54 L 15 96 09/16/24 05:24 61 14 95 09/16/24 05:12 50 L 13 94 09/16/24 05:00 109/62 09/16/24 05:00 109/62 09/16/24 05:00 109/62 09/16/24 05:00 109/62 09/16/24 05:00 109/62 09/16/24 05:00 109/62 09/16/24 05:00 109/62 09/16/24 05:00 109/62 09/16/24 05:00 109/62 09/16/24 05:00 109/62 09/16/24 05:00 109/62 09/16/24 05:00 109/62 09/16/24 05:00 109/62 09/16/24 05:00 109/62 09/16/24 05:00 109/62 09/16/24 05:00 109/62 09/16/24 05:00 109/62 09/16/24 05:00 37.0 C 109/62 09/16/24 05:00 109/62 09/16/24 05:00 109/62 09/16/24 05:00 60 14 93 09/16/24 04:42 50 L 13 94 09/16/24 04:03 53 L 13 94 09/16/24 04:00 120/73 09/16/24 04:00 120/73 09/16/24 04:00 120/73 09/16/24 04:00 120/73 09/16/24 04:00 120/73 09/16/24 04:00 120/73 09/16/24 04:00 120/73 09/16/24 04:00 120/73 09/16/24 04:00 120/73 09/16/24 04:00 120/73 09/16/24 04:00 120/73 09/16/24 04:00 120/73 09/16/24 04:00 120/73 09/16/24 03:54 57 L 15 94 09/16/24 03:33 51 L 13 95 09/16/24 03:13 51 L 09/16/24 03:00 51 L 14 96 09/16/24 03:00 116/76 09/16/24 03:00 116/76 09/16/24 03:00 116/76 09/16/24 03:00 116/76 09/16/24 03:00 116/76 09/16/24 02:33 51 L 15 95 09/16/24 02:13 56 L 09/16/24 02:12 55 L 13 94 09/16/24 02:06 50 L 16 96 09/16/24 02:00 123/79 09/16/24 02:00 123/79 09/16/24 02:00 123/79 09/16/24 02:00 123/79 09/16/24 02:00 123/79 09/16/24 02:00 123/79 09/16/24 02:00 123/79 09/16/24 02:00 123/79 09/16/24 02:00 123/79 09/16/24 02:00 123/79 09/16/24 02:00 123/79 09/16/24 02:00 123/79 09/16/24 02:00 123/79 09/16/24 02:00 123/79 09/16/24 01:33 54 L 15 95 09/16/24 01:13 56 L 09/16/24 01:12 62 17 97 09/16/24 01:00 147/81 H 09/16/24 01:00 147/81 H 09/16/24 01:00 147/81 H 09/16/24 01:00 147/81 H 09/16/24 01:00 147/81 H 09/16/24 01:00 147/81 H 09/16/24 01:00 147/81 H 09/16/24 01:00 147/81 H 09/16/24 01:00 147/81 H 09/16/24 01:00 147/81 H 09/16/24 01:00 58 L 16 94 09/16/24 00:51 55 L 14 94 09/16/24 00:15 62 18 96 09/16/24 00:13 60 09/16/24 00:00 141/88 H 09/16/24 00:00 141/88 H 09/16/24 00:00 141/88 H 09/15/24 23:48 85 24 95 09/15/24 23:42 67 13 95 09/15/24 23:33 67 14 96 09/15/24 23:32 73 09/15/24 23:30 147/83 H 09/15/24 23:30 147/83 H 09/15/24 23:30 147/83 H 09/15/24 23:13 81 09/15/24 23:00 142/100 H 09/15/24 23:00 71 16 142/100 H 96 09/15/24 23:00 142/100 H 09/15/24 23:00 142/100 H 09/15/24 23:00 142/100 H 09/15/24 23:00 142/100 H 09/15/24 22:51 84 22 98 09/15/24 22:48 36.6 C 81 15 169/102 H 97 09/15/24 22:45 156/91 H 09/15/24 22:45 156/91 H 09/15/24 22:45 156/91 H 09/15/24 22:45 156/91 H 09/15/24 22:45 156/91 H 09/15/24 22:45 81 20 96 09/15/24 22:43 74 09/15/24 22:30 156/94 H 09/15/24 22:27 68 14 98 09/15/24 22:15 158/105 H 09/15/24 22:13 80 09/15/24 22:03 78 23 98 09/15/24 22:00 161/106 H 09/15/24 22:00 161/106 H 09/15/24 21:58 76 09/15/24 21:57 81 19 98 09/15/24 21:51 80 12 93 09/15/24 21:48 78 19 97 09/15/24 21:43 76 09/15/24 21:35 36.6 C 169/102 H 09/15/24 21:35 169/102 H 09/15/24 21:31 80 09/15/24 21:28 76 09/15/24 20:27 09/15/24 20:07 70 18 198/122 H 96 09/15/24 20:07 09/15/24 20:05 68 18 171/119 H 95 O2 Del Method 09/16/24 06:48 09/16/24 06:30 09/16/24 06:21 09/16/24 06:12 09/16/24 06:06 09/16/24 06:00 09/16/24 06:00 09/16/24 06:00 09/16/24 06:00 09/16/24 06:00 09/16/24 06:00 09/16/24 06:00 09/16/24 06:00 09/16/24 06:00 09/16/24 06:00 09/16/24 06:00 09/16/24 06:00 09/16/24 06:00 09/16/24 05:57 09/16/24 05:42 09/16/24 05:33 09/16/24 05:24 09/16/24 05:12 09/16/24 05:00 09/16/24 05:00 09/16/24 05:00 09/16/24 05:00 09/16/24 05:00 09/16/24 05:00 09/16/24 05:00 09/16/24 05:00 09/16/24 05:00 09/16/24 05:00 09/16/24 05:00 09/16/24 05:00 09/16/24 05:00 09/16/24 05:00 09/16/24 05:00 09/16/24 05:00 09/16/24 05:00 09/16/24 05:00 09/16/24 05:00 09/16/24 05:00 09/16/24 05:00 09/16/24 04:42 09/16/24 04:03 09/16/24 04:00 09/16/24 04:00 09/16/24 04:00 09/16/24 04:00 09/16/24 04:00 09/16/24 04:00 09/16/24 04:00 09/16/24 04:00 09/16/24 04:00 09/16/24 04:00 09/16/24 04:00 09/16/24 04:00 09/16/24 04:00 09/16/24 03:54 09/16/24 03:33 09/16/24 03:13 09/16/24 03:00 09/16/24 03:00 09/16/24 03:00 09/16/24 03:00 09/16/24 03:00 09/16/24 03:00 09/16/24 02:33 09/16/24 02:13 09/16/24 02:12 09/16/24 02:06 09/16/24 02:00 09/16/24 02:00 09/16/24 02:00 09/16/24 02:00 09/16/24 02:00 09/16/24 02:00 09/16/24 02:00 09/16/24 02:00 09/16/24 02:00 09/16/24 02:00 09/16/24 02:00 09/16/24 02:00 09/16/24 02:00 09/16/24 02:00 09/16/24 01:33 09/16/24 01:13 09/16/24 01:12 09/16/24 01:00 09/16/24 01:00 09/16/24 01:00 09/16/24 01:00 09/16/24 01:00 09/16/24 01:00 09/16/24 01:00 09/16/24 01:00 09/16/24 01:00 09/16/24 01:00 09/16/24 01:00 09/16/24 00:51 09/16/24 00:15 09/16/24 00:13 09/16/24 00:00 09/16/24 00:00 09/16/24 00:00 09/15/24 23:48 09/15/24 23:42 09/15/24 23:33 09/15/24 23:32 09/15/24 23:30 09/15/24 23:30 09/15/24 23:30 09/15/24 23:13 09/15/24 23:00 09/15/24 23:00 09/15/24 23:00 09/15/24 23:00 09/15/24 23:00 09/15/24 23:00 09/15/24 22:51 09/15/24 22:48 Room Air 09/15/24 22:45 09/15/24 22:45 09/15/24 22:45 09/15/24 22:45 09/15/24 22:45 09/15/24 22:45 09/15/24 22:43 09/15/24 22:30 09/15/24 22:27 09/15/24 22:15 09/15/24 22:13 09/15/24 22:03 09/15/24 22:00 09/15/24 22:00 09/15/24 21:58 09/15/24 21:57 09/15/24 21:51 Room Air 09/15/24 21:48 09/15/24 21:43 09/15/24 21:35 09/15/24 21:35 09/15/24 21:31 09/15/24 21:28 09/15/24 20:27 Room Air 09/15/24 20:07 Room Air 09/15/24 20:07 Room Air 09/15/24 20:05 Room Air Critical Care Results & Data Vital Signs (Past 12 Hours) Vital Signs Temp Pulse Pulse Resp BP BP Pulse Ox 09/16/24 06:48 45 L 18 93 09/16/24 06:30 43 L 14 96 09/16/24 06:21 45 L 16 95 09/16/24 06:12 58 L 16 95 09/16/24 06:06 60 13 97 09/16/24 06:00 127/79 09/16/24 06:00 127/79 09/16/24 06:00 127/79 09/16/24 06:00 127/79 09/16/24 06:00 127/79 09/16/24 06:00 127/79 09/16/24 06:00 127/79 09/16/24 06:00 127/79 09/16/24 06:00 127/79 09/16/24 06:00 127/79 09/16/24 06:00 127/79 09/16/24 06:00 127/79 09/16/24 06:00 127/79 09/16/24 05:57 59 L 16 93 09/16/24 05:42 46 L 12 95 09/16/24 05:33 54 L 15 96 09/16/24 05:24 61 14 95 09/16/24 05:12 50 L 13 94 09/16/24 05:00 109/62 09/16/24 05:00 109/62 09/16/24 05:00 109/62 09/16/24 05:00 109/62 09/16/24 05:00 109/62 09/16/24 05:00 109/62 09/16/24 05:00 109/62 09/16/24 05:00 109/62 09/16/24 05:00 109/62 09/16/24 05:00 109/62 09/16/24 05:00 109/62 09/16/24 05:00 109/62 09/16/24 05:00 109/62 09/16/24 05:00 109/62 09/16/24 05:00 109/62 09/16/24 05:00 109/62 09/16/24 05:00 109/62 09/16/24 05:00 37.0 C 109/62 09/16/24 05:00 109/62 09/16/24 05:00 109/62 09/16/24 05:00 60 14 93 09/16/24 04:42 50 L 13 94 09/16/24 04:03 53 L 13 94 09/16/24 04:00 120/73 09/16/24 04:00 120/73 09/16/24 04:00 120/73 09/16/24 04:00 120/73 09/16/24 04:00 120/73 09/16/24 04:00 120/73 09/16/24 04:00 120/73 09/16/24 04:00 120/73 09/16/24 04:00 120/73 09/16/24 04:00 120/73 09/16/24 04:00 120/73 09/16/24 04:00 120/73 09/16/24 04:00 120/73 09/16/24 03:54 57 L 15 94 09/16/24 03:33 51 L 13 95 09/16/24 03:13 51 L 09/16/24 03:00 51 L 14 96 09/16/24 03:00 116/76 09/16/24 03:00 116/76 09/16/24 03:00 116/76 09/16/24 03:00 116/76 09/16/24 03:00 116/76 09/16/24 02:33 51 L 15 95 09/16/24 02:13 56 L 09/16/24 02:12 55 L 13 94 09/16/24 02:06 50 L 16 96 09/16/24 02:00 123/79 09/16/24 02:00 123/79 09/16/24 02:00 123/79 09/16/24 02:00 123/79 09/16/24 02:00 123/79 09/16/24 02:00 123/79 09/16/24 02:00 123/79 09/16/24 02:00 123/79 09/16/24 02:00 123/79 09/16/24 02:00 123/79 09/16/24 02:00 123/79 09/16/24 02:00 123/79 09/16/24 02:00 123/79 09/16/24 02:00 123/79 09/16/24 01:33 54 L 15 95 09/16/24 01:13 56 L 09/16/24 01:12 62 17 97 09/16/24 01:00 147/81 H 09/16/24 01:00 147/81 H 09/16/24 01:00 147/81 H 09/16/24 01:00 147/81 H 09/16/24 01:00 147/81 H 09/16/24 01:00 147/81 H 09/16/24 01:00 147/81 H 09/16/24 01:00 147/81 H 09/16/24 01:00 147/81 H 09/16/24 01:00 147/81 H 09/16/24 01:00 58 L 16 94 09/16/24 00:51 55 L 14 94 09/16/24 00:15 62 18 96 04/08/25 00:13 60 09/16/24 00:00 141/88 H 09/16/24 00:00 141/88 H 09/16/24 00:00 141/88 H 09/15/24 23:48 85 24 95 09/15/24 23:42 67 13 95 09/15/24 23:33 67 14 96 09/15/24 23:32 73 09/15/24 23:30 147/83 H 09/15/24 23:30 147/83 H 09/15/24 23:30 147/83 H 09/15/24 23:13 81 09/15/24 23:00 142/100 H 09/15/24 23:00 71 16 142/100 H 96 09/15/24 23:00 142/100 H 09/15/24 23:00 142/100 H 09/15/24 23:00 142/100 H 09/15/24 23:00 142/100 H 09/15/24 22:51 84 22 98 09/15/24 22:48 36.6 C 81 15 169/102 H 97 09/15/24 22:45 156/91 H 09/15/24 22:45 156/91 H 09/15/24 22:45 156/91 H 09/15/24 22:45 156/91 H 09/15/24 22:45 156/91 H 09/15/24 22:45 81 20 96 09/15/24 22:43 74 09/15/24 22:30 156/94 H 09/15/24 22:27 68 14 98 09/15/24 22:15 158/105 H 09/15/24 22:13 80 09/15/24 22:03 78 23 98 09/15/24 22:00 161/106 H 09/15/24 22:00 161/106 H 09/15/24 21:58 76 09/15/24 21:57 81 19 98 09/15/24 21:51 80 12 93 09/15/24 21:48 78 19 97 09/15/24 21:43 76 09/15/24 21:35 36.6 C 169/102 H 09/15/24 21:35 169/102 H 09/15/24 21:31 80 09/15/24 21:28 76 09/15/24 20:27 09/15/24 20:07 70 18 198/122 H 96 09/15/24 20:07 09/15/24 20:05 68 18 171/119 H 95 O2 Del Method 09/16/24 06:48 09/16/24 06:30 09/16/24 06:21 09/16/24 06:12 09/16/24 06:06 09/16/24 06:00 09/16/24 06:00 09/16/24 06:00 09/16/24 06:00 09/16/24 06:00 09/16/24 06:00 09/16/24 06:00 09/16/24 06:00 09/16/24 06:00 09/16/24 06:00 09/16/24 06:00 09/16/24 06:00 09/16/24 06:00 09/16/24 05:57 09/16/24 05:42 09/16/24 05:33 09/16/24 05:24 09/16/24 05:12 09/16/24 05:00 09/16/24 05:00 09/16/24 05:00 09/16/24 05:00 09/16/24 05:00 09/16/24 05:00 09/16/24 05:00 09/16/24 05:00 09/16/24 05:00 09/16/24 05:00 09/16/24 05:00 09/16/24 05:00 09/16/24 05:00 09/16/24 05:00 09/16/24 05:00 09/16/24 05:00 09/16/24 05:00 09/16/24 05:00 09/16/24 05:00 09/16/24 05:00 09/16/24 05:00 09/16/24 04:42 09/16/24 04:03 09/16/24 04:00 09/16/24 04:00 09/16/24 04:00 09/16/24 04:00 09/16/24 04:00 09/16/24 04:00 09/16/24 04:00 09/16/24 04:00 09/16/24 04:00 09/16/24 04:00 09/16/24 04:00 09/16/24 04:00 09/16/24 04:00 09/16/24 03:54 09/16/24 03:33 09/16/24 03:13 09/16/24 03:00 09/16/24 03:00 09/16/24 03:00 09/16/24 03:00 09/16/24 03:00 09/16/24 03:00 09/16/24 02:33 09/16/24 02:13 09/16/24 02:12 09/16/24 02:06 09/16/24 02:00 09/16/24 02:00 09/16/24 02:00 09/16/24 02:00 09/16/24 02:00 09/16/24 02:00 09/16/24 02:00 09/16/24 02:00 09/16/24 02:00 09/16/24 02:00 09/16/24 02:00 09/16/24 02:00 09/16/24 02:00 09/16/24 02:00 09/16/24 01:33 09/16/24 01:13 09/16/24 01:12 09/16/24 01:00 09/16/24 01:00 09/16/24 01:00 09/16/24 01:00 09/16/24 01:00 09/16/24 01:00 09/16/24 01:00 09/16/24 01:00 09/16/24 01:00 09/16/24 01:00 09/16/24 01:00 09/16/24 00:51 09/16/24 00:15 09/16/24 00:13 09/16/24 00:00 09/16/24 00:00 09/16/24 00:00 09/15/24 23:48 09/15/24 23:42 09/15/24 23:33 09/15/24 23:32 09/15/24 23:30 09/15/24 23:30 09/15/24 23:30 09/15/24 23:13 09/15/24 23:00 09/15/24 23:00 09/15/24 23:00 09/15/24 23:00 09/15/24 23:00 09/15/24 23:00 09/15/24 22:51 09/15/24 22:48 Room Air 09/15/24 22:45 09/15/24 22:45 09/15/24 22:45 09/15/24 22:45 09/15/24 22:45 09/15/24 22:45 09/15/24 22:43 09/15/24 22:30 09/15/24 22:27 09/15/24 22:15 09/15/24 22:13 09/15/24 22:03 09/15/24 22:00 09/15/24 22:00 09/15/24 21:58 09/15/24 21:57 09/15/24 21:51 Room Air 09/15/24 21:48 09/15/24 21:43 09/15/24 21:35 09/15/24 21:35 09/15/24 21:31 09/15/24 21:28 09/15/24 20:27 Room Air 09/15/24 20:07 Room Air 09/15/24 20:07 Room Air 09/15/24 20:05 Room Air Lab & Micro Results (Past 24 Hours) RBC 4.37 M/uL (4.70-6.10) L 09/16/24 WBC 6.67 K/ul (4.8-10.8) 09/16/24 Hgb 13.5 g/dl (14.0-18.0) L 09/16/24 Hct 39.3 % (42.0-52.0) L 09/16/24 MCV 89.9 fL (80.0-100.0) 09/16/24 MCH 33.8 pg (25.0-34.0) 09/16/24 MCHC 37.5 g/dL (32.0-36.0) H 09/16/24 RDW Standard Deviation 41.0 fL (36.4-46.3) 09/16/24 RDW Coefficient of Variation 12.3 % (11.5-14.5) 09/16/24 Plt Count 249 K/uL (130-400) 09/16/24 MPV 9.3 fL (9.4-12.4) L 09/16/24 Neutrophils (%) (Auto) 65.8 % 09/15/24 Lymphocytes (%) (Auto) 22.8 % 09/15/24 Monocytes # (Auto) 0.75 K/uL (0.11-0.59) H 09/15/24 Eosinophils # (Auto) 0.12 K/uL (0.00-0.50) 09/15/24 Immature Granulocyte % (Auto) 0.2 % 09/15/24 Neutrophils # (Auto) 5.39 K/uL (1.40-6.50) 09/15/24 Lymphocytes # (Auto) 1.87 K/uL (1.20-3.40) 09/15/24 Monocytes # (Auto) 0.75 K/uL (0.11-0.59) H 09/15/24 Eosinophils # (Auto) 0.12 K/uL (0.00-0.50) 09/15/24 Basophils # (Auto) 0.04 K/uL (0.00-0.20) 09/15/24 Immature Granulocyte # (Auto) 0.02 K/uL (0.01-0.20) 5 Na 136 mmol/L (136-145) 09/16/24 K 3.9 mmol/L (3.5-5.1) 09/16/24 Cl 105 mmol/L (98-107) 09/16/24 CO2 26 mmol/L (21-32) 09/16/24 Anion Gap 5 (3-11) 09/16/24 BUN 19 mg/dl (6-23) 09/16/24 Creatinine 1.13 mg/dl (0.6-1.4) 09/16/24 BUN/Creatinine Ratio 16.8 (10-20) 09/16/24 Glu 115 mg/dl (70-99(Fasting)) H 09/16/24 Ca 8.5 mg/dl (8.6-10.3) L 09/16/24 Phosphorus Level 4.1 mg/dl (2.5-4.9) 09/16/24 Total Bilirubin 1.8 mg/dl (0.2-1.0) H 09/15/24 AST 32 U/L (13-39) 09/15/24 ALT 37 U/L (7-52) 09/15/24 Alkaline Phosphatase 63 U/L (34-104) 09/15/24 TP 7.0 gm/dl (6.0-8.3) 09/15/24 Albumin 4.5 gm/dl (3.4-5.0) 09/15/24 Globulin 2.5 gm/dl (2.5-4.0) 09/15/24 Albumin/Globulin Ratio 1.8 (0.9-2) 09/15/24 Mg 2.0 mg/dl (1.7-2.4) 09/16/24 05:12 Calcium Level 8.5 mg/dl (8.6-10.3) L 09/16/24 05:12 Prothromb Time International Ratio 1.0 (0.9-1.1) 09/15/24 20:2 5 Diagnostic Findings (Past 24 Hours) Chest X-Ray 09/15/24 20:25 Exam(s): XR CXR 1 VIEW EXAM: XR Chest, 1 View CLINICAL HISTORY: Reason for exam: Chest pain, nonspecific. TECHNIQUE: Frontal view of the chest. COMPARISON: No relevant prior studies available. FINDINGS: Lungs: No consolidation. No overt edema. Pleural space: No pleural effusion. No pneumothorax. Heart: Unremarkable. No cardiomegaly. IMPRESSION: No acute cardiopulmonary abnormality. Electronically signed by: Mt Madsen MD 09/15/24 22:01 PM I & O Totals 24 Hours 09/15/24 09/16/24 09/17/24 06:59 06:59 06:59 Intake Total 900 / 900 Output Total 1100 / 1100 Balance -200 / -200 Cumulative 09/15/24 20:04 thru 09/16/24 07:00 Intake Total 900 Output Total 1100 Balance -200 RT Ventilator Mngmt (Last Documented) Ventilator Ordered Settings Respiratory Rate 18 09/16/24 06:48 Ventilator - PT Measurements Respiratory Rate 18 Coding Level of Care Code 05458 SUB INP/OBS CARE 2/35MIN Diagnoses ST elevation myocardial infarction (STEMI) of inferior wall I21.19 CAD (coronary artery disease) I25.10 Hypertension I10
[2024-09-16 08:11] LABS: Basophils # (auto) 0.03 K/uL (0.00-0.20); Basophils % (auto) 0.4 %; Eosinophils # (auto) 0.12 K/uL (0.00-0.50); Eosinophils % (auto) 1.8 %; Immature Granulocytes # (auto) 0.02 K/uL (0.01-0.20); Immature Granulocytes % (auto) 0.3 %; Lymphocytes # (auto) 1.18 K/uL (1.20-3.40); Lymphocytes % (auto) 17.7 %; Monocytes # (auto) 0.66 K/uL (0.11-0.59); Monocytes % (auto) 9.9 %; Neutrophils # (auto) 4.66 K/uL (1.40-6.50); Neutrophils % (auto) 69.9 %
--- NOTE | 2024-09-16 08:37 | XCELERA ---
[id number] \\[id number]
[2024-09-16] MEDS ORDERED: METOPROLOL TARTRATE 25 MG TAB PO SCH (09:00)
[2024-09-16] MEDS: TICAGRELOR 90 MG TAB PO SCH (09:37)
[2024-09-16] MEDS: PANTOprazole 40 MG TAB PO SCH (09:39)
[2024-09-16] MEDS: ATORVASTATIN 40 MG TAB PO SCH (09:40)
[2024-09-16] MEDS: ASPIRIN 81 MG ECTAB PO SCH (09:40)
[2024-09-16] MEDS: LOSARTAN POTASSIUM 25 MG TAB PO SCH (09:40)
--- NOTE | 2024-09-16 09:40 | Cardiology Progress Note ---
Date of Service September 16, 2024 Assessment & Plan (1) CAD (coronary artery disease): Plan: Occluded mid RCA with partial [id number] collaterals post DELILAH 30-40% proximal, distal LAD, 25% ostial LCx, proximal OM2 2. Preserved LV functioninferior wall motion abnormality 3. Sinus bradycardia 4. Hypertension 5. Dyslipidemia 6. GERD 7. Mild mitral regurgitation Doing well this morning post PCI Chest pain-free. Electrically and hemodynamically stable. No access site complications. LV function preserved on echo. No signs of heart failure on exam. Continue DAPT with aspirin, ticagrelor for 1 year With preserved LV function okay to stop beta-tessa Continue losartan Continue high intensity statin If troponin downtrending and no symptoms when up walking in halls, okay with discharge later today. Will arrange follow-up with me in 1 to 2 weeks. Discuss cardiac rehab further at that time. Appreciate ICU and hospital medicine team care. Admission and Anticipated Discharge Date Admission Date: September 15, 2024 Subjective Feeling well this morning. No chest pain overnight. No shortness of breath. No palpitations. Telemetry reviewedsinus bradycardia down to the 50s. Occasional PVCs. Echo reviewedEF 55%, mild inferior hypokinesis. Review of Systems Review of Systems: All systems reviewed & are unremarkable except as noted in HPI & below Physical Exam Physical Exam: General: Comfortable HEENT: Sclerae anicteric Lungs: Clear to auscultation bilaterally, no crackles or wheezes Cardiac: Regular rate and rhythm, no murmurs. Vascular: Right radial artery access site with no ecchymosis, hematoma. Distal pulse and sensation intact. Abdomen: Soft, nontender Extremities: Well perfused, no peripheral edema Neuro: Nonfocal Psych: Alert orient x3, normal affect and mood Results & Data Vital Signs (Past 12 Hours) Vital Signs Temp Pulse Pulse Resp BP BP Pulse Ox 09/16/24 08:07 97.5 F L 09/16/24 07:58 44 L 09/16/24 06:48 45 L 18 93 09/16/24 06:30 43 L 14 96 09/16/24 06:21 45 L 16 95 09/16/24 06:12 58 L 16 95 09/16/24 06:06 60 13 97 09/16/24 06:00 127/79 09/16/24 06:00 127/79 09/16/24 06:00 127/79 09/16/24 06:00 127/79 09/16/24 06:00 127/79 09/16/24 06:00 127/79 09/16/24 06:00 127/79 09/16/24 06:00 127/79 09/16/24 06:00 127/79 09/16/24 06:00 127/79 09/16/24 06:00 127/79 09/16/24 06:00 127/79 09/16/24 06:00 127/79 09/16/24 05:57 59 L 16 93 09/16/24 05:42 46 L 12 95 09/16/24 05:33 54 L 15 96 09/16/24 05:24 61 14 95 09/16/24 05:12 50 L 13 94 09/16/24 05:00 109/62 09/16/24 05:00 109/62 09/16/24 05:00 109/62 09/16/24 05:00 109/62 09/16/24 05:00 109/62 09/16/24 05:00 109/62 09/16/24 05:00 109/62 09/16/24 05:00 109/62 09/16/24 05:00 109/62 09/16/24 05:00 109/62 09/16/24 05:00 109/62 09/16/24 05:00 109/62 09/16/24 05:00 109/62 09/16/24 05:00 109/62 09/16/24 05:00 109/62 09/16/24 05:00 109/62 09/16/24 05:00 109/62 09/16/24 05:00 98.6 F 109/62 09/16/24 05:00 109/62 09/16/24 05:00 109/62 09/16/24 05:00 60 14 93 09/16/24 04:42 50 L 13 94 09/16/24 04:03 53 L 13 94 09/16/24 04:00 120/73 09/16/24 04:00 120/73 09/16/24 04:00 120/73 09/16/24 04:00 120/73 09/16/24 04:00 120/73 09/16/24 04:00 120/73 09/16/24 04:00 120/73 09/16/24 04:00 120/73 09/16/24 04:00 120/73 09/16/24 04:00 120/73 09/16/24 04:00 120/73 09/16/24 04:00 120/73 09/16/24 04:00 120/73 09/16/24 03:54 57 L 15 94 09/16/24 03:33 51 L 13 95 09/16/24 03:13 51 L 09/16/24 03:00 51 L 14 96 09/16/24 03:00 116/76 09/16/24 03:00 116/76 09/16/24 03:00 116/76 09/16/24 03:00 116/76 09/16/24 03:00 116/76 09/16/24 02:33 51 L 15 95 09/16/24 02:13 56 L 09/16/24 02:12 55 L 13 94 09/16/24 02:06 50 L 16 96 09/16/24 02:00 123/79 09/16/24 02:00 123/79 09/16/24 02:00 123/79 09/16/24 02:00 123/79 09/16/24 02:00 123/79 09/16/24 02:00 123/79 09/16/24 02:00 123/79 09/16/24 02:00 123/79 09/16/24 02:00 123/79 09/16/24 02:00 123/79 09/16/24 02:00 123/79 09/16/24 02:00 123/79 09/16/24 02:00 123/79 09/16/24 02:00 123/79 09/16/24 01:33 54 L 15 95 09/16/24 01:13 56 L 09/16/24 01:12 62 17 97 09/16/24 01:00 147/81 H 09/16/24 01:00 147/81 H 09/16/24 01:00 147/81 H 09/16/24 01:00 147/81 H 09/16/24 01:00 147/81 H 09/16/24 01:00 147/81 H 09/16/24 01:00 147/81 H 09/16/24 01:00 147/81 H 09/16/24 01:00 147/81 H 09/16/24 01:00 147/81 H 09/16/24 01:00 58 L 16 94 09/16/24 00:51 55 L 14 94 09/16/24 00:15 62 18 96 09/16/24 00:13 60 09/16/24 00:00 141/88 H 09/16/24 00:00 141/88 H 09/16/24 00:00 141/88 H 09/15/24 23:48 85 24 95 09/15/24 23:42 67 13 95 09/15/24 23:33 67 14 96 09/15/24 23:32 73 09/15/24 23:30 147/83 H 09/15/24 23:30 147/83 H 09/15/24 23:30 147/83 H 09/15/24 23:13 81 09/15/24 23:00 142/100 H 09/15/24 23:00 71 16 142/100 H 96 09/15/24 23:00 142/100 H 09/15/24 23:00 142/100 H 09/15/24 23:00 142/100 H 09/15/24 23:00 142/100 H 09/15/24 22:51 84 22 98 09/15/24 22:48 97.9 F 81 15 169/102 H 97 09/15/24 22:45 156/91 H 09/15/24 22:45 156/91 H 09/15/24 22:45 156/91 H 09/15/24 22:45 156/91 H 09/15/24 22:45 156/91 H 09/15/24 22:45 81 20 96 09/15/24 22:43 74 09/15/24 22:30 156/94 H 09/15/24 22:27 68 14 98 09/15/24 22:15 158/105 H 09/15/24 22:13 80 09/15/24 22:03 78 23 98 09/15/24 22:00 161/106 H 09/15/24 22:00 161/106 H 09/15/24 21:58 76 09/15/24 21:57 81 19 98 09/15/24 21:51 80 12 93 09/15/24 21:48 78 19 97 09/15/24 21:43 76 09/15/24 21:35 97.9 F 169/102 H 09/15/24 21:35 169/102 H 09/15/24 21:31 80 O2 Del Method 09/16/24 08:07 09/16/24 07:58 09/16/24 06:48 09/16/24 06:30 09/16/24 06:21 09/16/24 06:12 09/16/24 06:06 09/16/24 06:00 09/16/24 06:00 09/16/24 06:00 09/16/24 06:00 09/16/24 06:00 09/16/24 06:00 09/16/24 06:00 09/16/24 06:00 09/16/24 06:00 09/16/24 06:00 09/16/24 06:00 09/16/24 06:00 09/16/24 06:00 09/16/24 05:57 09/16/24 05:42 09/16/24 05:33 09/16/24 05:24 09/16/24 05:12 09/16/24 05:00 09/16/24 05:00 09/16/24 05:00 09/16/24 05:00 09/16/24 05:00 09/16/24 05:00 09/16/24 05:00 09/16/24 05:00 09/16/24 05:00 09/16/24 05:00 09/16/24 05:00 09/16/24 05:00 09/16/24 05:00 09/16/24 05:00 09/16/24 05:00 09/16/24 05:00 09/16/24 05:00 09/16/24 05:00 09/16/24 05:00 09/16/24 05:00 09/16/24 05:00 09/16/24 04:42 09/16/24 04:03 09/16/24 04:00 09/16/24 04:00 09/16/24 04:00 09/16/24 04:00 09/16/24 04:00 09/16/24 04:00 09/16/24 04:00 09/16/24 04:00 09/16/24 04:00 09/16/24 04:00 09/16/24 04:00 09/16/24 04:00 09/16/24 04:00 09/16/24 03:54 09/16/24 03:33 09/16/24 03:13 09/16/24 03:00 09/16/24 03:00 09/16/24 03:00 09/16/24 03:00 09/16/24 03:00 09/16/24 03:00 09/16/24 02:33 09/16/24 02:13 09/16/24 02:12 09/16/24 02:06 09/16/24 02:00 09/16/24 02:00 09/16/24 02:00 09/16/24 02:00 09/16/24 02:00 09/16/24 02:00 09/16/24 02:00 09/16/24 02:00 09/16/24 02:00 09/16/24 02:00 09/16/24 02:00 09/16/24 02:00 09/16/24 02:00 09/16/24 02:00 09/16/24 01:33 09/16/24 01:13 09/16/24 01:12 09/16/24 01:00 09/16/24 01:00 09/16/24 01:00 09/16/24 01:00 09/16/24 01:00 09/16/24 01:00 09/16/24 01:00 09/16/24 01:00 09/16/24 01:00 09/16/24 01:00 09/16/24 01:00 09/16/24 00:51 09/16/24 00:15 09/16/24 00:13 09/16/24 00:00 09/16/24 00:00 09/16/24 00:00 09/15/24 23:48 09/15/24 23:42 09/15/24 23:33 09/15/24 23:32 09/15/24 23:30 09/15/24 23:30 09/15/24 23:30 09/15/24 23:13 09/15/24 23:00 09/15/24 23:00 09/15/24 23:00 09/15/24 23:00 09/15/24 23:00 09/15/24 23:00 09/15/24 22:51 09/15/24 22:48 Room Air 09/15/24 22:45 09/15/24 22:45 09/15/24 22:45 09/15/24 22:45 09/15/24 22:45 09/15/24 22:45 09/15/24 22:43 09/15/24 22:30 09/15/24 22:27 09/15/24 22:15 09/15/24 22:13 09/15/24 22:03 09/15/24 22:00 09/15/24 22:00 09/15/24 21:58 09/15/24 21:57 09/15/24 21:51 Room Air 09/15/24 21:48 09/15/24 21:43 09/15/24 21:35 09/15/24 21:35 09/15/24 21:31 PG Care Time/CCT Total # of Minutes Spent Total Time Spent with Patient: Total time spent is greater than 50% in coordination of care (as documented) at patient's floor/unit and/or counseling patient: Coding Level of Care Code 67590 SUB INP/OBS CARE 3/50MIN Diagnoses CAD (coronary artery disease) I25.10
[2024-09-16] MEDS: CALCIUM CARBONATE 500 MG CHEWABLE TAB PO PRN (10:18)
[2024-09-16 11:12] VITALS: BP 120/73; PULSE 45; RESP 20; TEMP 97.9; O2SAT 97
--- NOTE | 2024-09-16 14:33 | Discharge Summary ---
Discharge Summary Date of Service September 16, 2024 Principal Dx & Hospital Course #1 = Principal Diagnosis (1) ST elevation myocardial infarction (STEMI) of inferior wall: (2) Hx of primary hypertension: (3) GERD (gastroesophageal reflux disease): Plan 59 year old male presents as a transfer from [place] ER with chest pain and inferior STEMI #Inferior STEMI #Essential hypertension #Hyperlipidemia with hypertriglyceridemia s/p PCI with x1 DELILAH to 100% occluded RCA ASA, Brilinta, losartan, statin A1c is 5.2 LDL 137 Triglycerides 428 Total cholesterol 214 Patient was seen by occ ther Dr. Melvin Saenz He underwent cardiac cath which found occluded mid RCA with partial left to right collaterals and underwent PCI with DELILAH to RCA Echo showed preserved ejection fraction with inferior wall motion abnormality Troponin is downtrending Cardiology recommend continuing DAPT with aspirin and Brilinta for 1 year, since patient has preserved LV function okay to stop beta-tessa since patient had sinus bradycardia Cardiology is recommended continue losartan and high intensity statin Troponin is downtrending and per cardiology since patient is ambulating and is chest pain-free he can be discharged home with outpatient follow-up with cardiology in 1 to 2 weeks time at which point they will discuss cardiac rehab at that time. # GERD Tums as needed Outpatient follow-up with PCP #Alcohol use #History of fatty liver Patient drinks 5 drinks of bourbon a week Alcohol cessation counseling provided Given history of fatty liver and hypertriglyceridemia, patient would benefit from stopping alcohol and diet modifications: Discussed lifestyle changes including diet and exercise Outpatient follow-up with PCP to monitor LFTs Patient seen and examined. He is ambulating, denies any chest pain or shortness of breath. He has been cleared by cardiology for discharge. Troponin is downtrending I have gone over the discharge medications, care plan and follow-up with the patient and his was at the bedside in great detail and answered all their questions This discharge took greater than 30 minutes to coordinate Admission HPI Per Admitting Provider Vishal Knott is a 59 year old male who presents to [place] emergency room with chest pain. Intermittent for the last 2 weeks resolving over 5 minutes. Constant severe pain since 5pm today. Seen at [facility] and EKG concerning for inferior STEMI therefore emergently transferred to [facility] for percutaneous intervention and he arrived as a heart alert. Patient was seen both pre and post cardiac catheterization. He is currently chest pain free following cardiac catheterization in the ICU. Discharge Exam General: No acute distress Psych: Awake and alert HEENT: Anicteric sclera, moist oral mucosa CVS: Regular rate and rhythm Lungs: Bilateral air entry, no wheezing noted Abdomen: Soft, nontender, no rebound, no guarding Ext: No lower extremity edema, no calf tenderness Neuro: No focal motor deficits noted Discharge Plan Discharge Items Patient Disposition: Home - Self-Care Reason For Visit: STEMI Discharge Diagnosis: STEMI Hyperlipidemia with hypertriglyceridemia Condition on Discharge: Fair Activity: Resume your previous activity Non-emergency contact: Primary Care Provider Call non-emergency contact if: you have any medication questions, your symptoms worsen, your pain is worsening and you have a fever Follow-up/Referrals: Melvin Saenz MD [Physician] - Chapo Felder [Primary Care Provider] - Diet: Heart Healthy Addtl Attending Provider Instructions: DISCHARGE INSTRUCTION TO PATIENT/FAMILY: Follow-up with your primary care provider within 1 week regarding: Posthospital discharge, medication review, medication refills and follow-up on all your medical problems Please take all your discharge medications, discharge information and discharge instructions to all your doctors appointments. Avoid all NSAIDs including ibuprofen, Motrin, Advil, Aleve, naproxen, meloxicam, Toradol, diclofenac Labs through PCP in 2 week: CBC, CMP, MG, VITAMIN D Please avoid all alcohol and monitor your liver function through your PCP You were admitted and diagnosed with ST elevation myocardial infarction (heart attack). You have a drug-eluting stent placed in RCA coronary artery. You were seen by occ ther Dr. Melvin Saenz. You will have to be on combination of aspirin and Brilinta for at least 1 year. Please follow-up with occ ther Dr. Melvin Saenz in 1 to 2 weeks time at which point they will also refer you to outpatient cardiac rehab. Your total cholesterol is 214, your LDL is 137, HDL is 35 and your total triglycerides are very high at 428. You have been started on atorvastatin 80 mg daily. Please follow-up with your PCP regarding this. Please see your primary care provider for return to work clearance Pending Studies at Discharge: No Stand-Alone Forms: My [employer], Work/School Release, Smoking Cessation Medications and DC Order Prescriptions: New ticagrelor 90 mg tablet 90 mg PO BID Qty: 60 0RF atorvastatin 40 mg Tablet 80 mg PO QAM Qty: 30 0RF aspirin 81 mg Tablet,Delayed Release (Dr/Ec) 81 mg PO QAM Qty: 30 0RF losartan 25 mg Tablet 25 mg PO QAM Qty: 30 0RF calcium carbonate 400 mg calcium (1,000 mg) tablet,chewable 500 mg PO TID PRN (Reason: dyspepsia) Qty: 10 0RF Rx Instructions: Available [id number] Continued Unknown Muscle Relaxant 1 dose PO DIRECTED PRN (Reason: MUSCLE SPASMS) Rx Instructions: UNABLE TO VERIFY MEDICATION OR DOSEAGE. Discharge Orders: Discharge Order (Routine); Ordered 09/16/24 Ordered By: Randall Diaz/Other Patient Handouts: Heart Attack Dc Admission Data Admit Date/Time: 09/15/24 20:26 Attending Provider: Randall Atwood Admit Provider: Jorge Kim Primary Care Provider: Chapo Felder Other Providers: Canelo Rosales; Jorge Kim; Melvin Saenz Hospital Stay Data Consultations 09/15/24 21:35 Consult Wire Mill Operator Routine 09/15/24 21:38 ED Decision to Admit Stat 09/15/24 22:16 Consult Cardiology Stat Procedures Performed Operation Date: 09/15/24 20:15 Actual Procedures p Cineradiography w/Routine Exam - Melvin Saenz MD p Aspiration/PCI w/DELILAH for Stemi - Melvin Saenz MD Diagnostic Imagining Performed 09/15/24 20:12 CL Cath Imgs for PACS use only Stat Chest X-Ray 09/15/24 20:25 Exam(s): XR CXR 1 VIEW EXAM: XR Chest, 1 View CLINICAL HISTORY: Reason for exam: Chest pain, nonspecific. TECHNIQUE: Frontal view of the chest. COMPARISON: No relevant prior studies available. FINDINGS: Lungs: No consolidation. No overt edema. Pleural space: No pleural effusion. No pneumothorax. Heart: Unremarkable. No cardiomegaly. IMPRESSION: No acute cardiopulmonary abnormality. Electronically signed by: Mt Madsen MD 09/15/24 22:01 PM Laboratory Results - last 48 hr 09/15/24 09/15/24 09/15/24 20:25 20:26 20:59 WBC 8.19 RBC 4.74 Hgb 15.8 POC Hgb 14.3 Hct 42.1 POC Hct 42 MCV 88.8 MCH 33.3 MCHC 37.5 H RDW Std Deviation 39.0 RDW Coeff of Nicanor 12.1 Plt Count 249 MPV 9.1 L Immature Gran % (Auto) 0.2 Neut % (Auto) 65.8 Lymph % (Auto) 22.8 Craven % (Auto) 9.2 Eos % (Auto) 1.5 Baso % (Auto) 0.5 Neut # (Auto) 5.39 Lymph # (Auto) 1.87 Craven # (Auto) 0.75 H Eos # (Auto) 0.12 Baso # (Auto) 0.04 Immature Gran # (Auto) 0.02 PT 11.0 INR 1.0 APTT 43 H PTT Ratio 1.6 Activ Coag Time Kaolin 233 H POC Sodium 139 Sodium 137 POC Potassium 3.8 Potassium 3.8 POC Chloride 104 Chloride 105 Carbon Dioxide 25 POC Total CO2 24 Anion Gap 7 POC Anion Gap 17.0 POC BUN 18 BUN 18 Creatinine 1.12 POC Creatinine 1.2 Est Cr Clr Drug Dosing 91.1 eGFR 76.15 BUN/Creatinine Ratio 16.1 Glucose 93 POC Glucose POC Glucose (other) 95 Estimat Average Glucose Hemoglobin A1c Calcium 9.1 POC Ioniz Calcium Sandeep 1.11 L Phosphorus Magnesium 1.9 Total Bilirubin 1.8 H AST 32 ALT 37 Alkaline Phosphatase 63 Troponin I High Sens 241.6 H* Total Protein 7.0 Albumin 4.5 Globulin 2.5 Albumin/Globulin Ratio 1.8 Triglycerides Cholesterol LDL Cholesterol Direct LDL Cholesterol, Calc VLDL Cholesterol, Calc HDL Cholesterol Cholesterol/HDL Ratio Lipase 110 H Nasal Screen MRSA (PCR) 09/15/24 09/15/24 09/15/24 21:13 21:45 22:17 WBC RBC Hgb POC Hgb Hct POC Hct MCV MCH MCHC RDW Std Deviation RDW Coeff of Nicanor Plt Count MPV Immature Gran % (Auto) Neut % (Auto) Lymph % (Auto) Craven % (Auto) Eos % (Auto) Baso % (Auto) Neut # (Auto) Lymph # (Auto) Craven # (Auto) Eos # (Auto) Baso # (Auto) Immature Gran # (Auto) PT INR APTT PTT Ratio Activ Coag Time Kaolin 222 H POC Sodium Sodium POC Potassium Potassium POC Chloride Chloride Carbon Dioxide POC Total CO2 Anion Gap POC Anion Gap POC BUN BUN Creatinine POC Creatinine Est Cr Clr Drug Dosing eGFR BUN/Creatinine Ratio Glucose POC Glucose 110 H POC Glucose (other) Estimat Average Glucose Hemoglobin A1c Calcium POC Ioniz Calcium Sandeep Phosphorus Magnesium Total Bilirubin AST ALT Alkaline Phosphatase Troponin I High Sens Total Protein Albumin Globulin Albumin/Globulin Ratio Triglycerides Cholesterol LDL Cholesterol Direct LDL Cholesterol, Calc VLDL Cholesterol, Calc HDL Cholesterol Cholesterol/HDL Ratio Lipase Nasal Screen MRSA (PCR) Negative 09/15/24 09/16/24 09/16/24 22:29 05:12 07:05 WBC 6.67 RBC 4.37 L Hgb 13.5 L POC Hgb Hct 39.3 L POC Hct MCV 89.9 MCH 33.8 MCHC 37.5 H RDW Std Deviation 41.0 RDW Coeff of Nicanor 12.3 Plt Count 249 MPV 9.3 L Immature Gran % (Auto) 0.3 Neut % (Auto) 69.9 Lymph % (Auto) 17.7 Craven % (Auto) 9.9 Eos % (Auto) 1.8 Baso % (Auto) 0.4 Neut # (Auto) 4.66 Lymph # (Auto) 1.18 L Craven # (Auto) 0.66 H Eos # (Auto) 0.12 Baso # (Auto) 0.03 Immature Gran # (Auto) 0.02 PT INR APTT PTT Ratio Activ Coag Time Kaolin POC Sodium Sodium 136 POC Potassium Potassium 3.9 POC Chloride Chloride 105 Carbon Dioxide 26 POC Total CO2 Anion Gap 5 POC Anion Gap POC BUN BUN 19 Creatinine 1.13 POC Creatinine Est Cr Clr Drug Dosing 81.6 eGFR 75.34 BUN/Creatinine Ratio 16.8 Glucose 115 H POC Glucose 108 H POC Glucose (other) Estimat Average Glucose 100 Hemoglobin A1c 5.1 Calcium 8.5 L POC Ioniz Calcium Sandeep Phosphorus 4.1 Magnesium 2.0 Total Bilirubin AST ALT Alkaline Phosphatase Troponin I High Sens 2379.2 H* D 71305.8 H* D Total Protein Albumin Globulin Albumin/Globulin Ratio Triglycerides 428 H Cholesterol 214 H LDL Cholesterol Direct LDL Cholesterol, Calc TNP VLDL Cholesterol, Calc TNP HDL Cholesterol 35 Cholesterol/HDL Ratio 6.1 H Lipase Nasal Screen MRSA (PCR) 09/16/24 11:20 WBC RBC Hgb POC Hgb Hct POC Hct MCV MCH MCHC RDW Std Deviation RDW Coeff of Nicanor Plt Count MPV Immature Gran % (Auto) Neut % (Auto) Lymph % (Auto) Craven % (Auto) Eos % (Auto) Baso % (Auto) Neut # (Auto) Lymph # (Auto) Craven # (Auto) Eos # (Auto) Baso # (Auto) Immature Gran # (Auto) PT INR APTT PTT Ratio Activ Coag Time Kaolin POC Sodium Sodium POC Potassium Potassium POC Chloride Chloride Carbon Dioxide POC Total CO2 Anion Gap POC Anion Gap POC BUN BUN Creatinine POC Creatinine Est Cr Clr Drug Dosing eGFR BUN/Creatinine Ratio Glucose POC Glucose POC Glucose (other) Estimat Average Glucose Hemoglobin A1c Calcium POC Ioniz Calcium Sandeep Phosphorus Magnesium Total Bilirubin AST ALT Alkaline Phosphatase Troponin I High Sens 8267.0 H* Total Protein Albumin Globulin Albumin/Globulin Ratio Triglycerides Cholesterol LDL Cholesterol Direct 137 LDL Cholesterol, Calc VLDL Cholesterol, Calc HDL Cholesterol Cholesterol/HDL Ratio Lipase Nasal Screen MRSA (PCR) Pending Results Patient Have Any Pending Studies at Discharge: No Discharge Instructions Given to Patient (Per Discharging Provider) DISCHARGE INSTRUCTION TO PATIENT/FAMILY: Follow-up with your primary care provider within 1 week regarding: Posthospital discharge, medication review, medication refills and follow-up on all your medical problems Please take all your discharge medications, discharge information and discharge instructions to all your doctors appointments. Avoid all NSAIDs including ibuprofen, Motrin, Advil, Aleve, naproxen, meloxicam, Toradol, diclofenac Labs through PCP in 2 week: CBC, CMP, MG, VITAMIN D Please avoid all alcohol and monitor your liver function through your PCP You were admitted and diagnosed with ST elevation myocardial infarction (heart attack). You have a drug-eluting stent placed in RCA coronary artery. You were seen by occ ther Dr. Melvin Saenz. You will have to be on combination of aspirin and Brilinta for at least 1 year. Please follow-up with occ ther Dr. Melvin Saenz in 1 to 2 weeks time at which point they will also refer you to outpatient cardiac rehab. Your total cholesterol is 214, your LDL is 137, HDL is 35 and your total triglycerides are very high at 428. You have been started on atorvastatin 80 mg daily. Please follow-up with your PCP regarding this. Please see your primary care provider for return to work clearance Total Time Total Time Spent Total Time Spent (In Minutes): 40 minutes Coding Level of Care Code 68235 INP/OBS DISCH >[address] elevation myocardial infarction (STEMI) of inferior wall I21.19 Hx of primary hypertension Z86.79 GERD (gastroesophageal reflux disease) K21.9
--- NOTE | 2024-09-16 21:53 | Electrocardiogram Report ---
Test Reason : Blood Pressure : */* mmHG Vent. Rate : 53 BPM Atrial Rate : 53 BPM P-R Int : 178 ms QRS Dur : 94 ms QT Int : 420 ms P-R-T Axes : 41 19 45 degrees QTcB Int : 394 ms Sinus bradycardia with sinus arrhythmia Inferior infarct , possibly acute ACUTE DE / STEMI Consider right ventricular involvement in acute inferior infarct Abnormal ECG When compared with ECG of 17-Nov-2021 10:11, Inferior ST elevation is now present Confirmed by Moises Schneider ([id number]) on 09/16/2024 9:53:19 PM Referred By: REFERRED SELF Confirmed By: Moises Schneider
--- NOTE | 2024-09-16 21:54 | Electrocardiogram Report ---
Test Reason : Blood Pressure : */* mmHG Vent. Rate : 80 BPM Atrial Rate : 80 BPM P-R Int : 198 ms QRS Dur : 92 ms QT Int : 416 ms P-R-T Axes : 26 3 -12 degrees QTcB Int : 479 ms Normal sinus rhythm Inferior infarct (cited on or before 15-Sep-2024) Abnormal ECG When compared with ECG of 15-Sep-2024 20:19, Vent. rate has increased by 27 bpm Serial changes of evolving Inferior infarct Present Confirmed by Moises Schneider ([id number]) on 09/16/2024 9:53:39 PM Referred By: REFERRED SELF Confirmed By: Moises Schneider
== END 2024-09-16 15:00 | disposition home or self-care (01) | DRG 322 ==
LOC: ED 20:14 → SUATTDRO 20:26 → 1E 20:26